=== PATIENT | female | born 1965 | race African-American/Black ===

== ENCOUNTER 2017-07-17 16:06 | Outpatient (CLI) | payer BC ==
[2017-07-17 18:46] LABS: BASOPHILS % (AUTO) 0.4 % (0.0-2.0); EOSINOPHILS # (AUTO) 0.1 K/uL (0.0-0.4); EOSINOPHILS % (AUTO) 1.5 % (0.0-4.0); HEMATOCRIT 39.1 % (36-48); HEMOGLOBIN 12.8 g/dL (12.0-16.0); LYMPHOCYTES # (AUTO) 2.7 K/uL (1.0-5.5); LYMPHOCYTES % (AUTO) 40.2 % (20.5-51.5); MEAN CORPUSCULAR HEMOGLOBIN 30 pg (27-31); MEAN CORPUSCULAR HGB CONC 33 % (32-36); MEAN CORPUSCULAR VOLUME 91 fL (79.0-98.0); MONOCYTES # (AUTO) 0.6 K/uL (0.0-1.0); MONOCYTES % (AUTO) 9.2 % (1.7-9.3); NEUTROPHILS # (AUTO) 3.3 K/uL (1.8-7.7); NEUTROPHILS % (AUTO) 48.7 % (40.0-70.0); PLATELET COUNT (AUTO) 302 K/uL (130-430); RED BLOOD CELL COUNT(AUTO) 4.32 MIL/uL (4.2-6.2); RED CELL DISTRIBUTION WIDTH 12.1 % (9.0-15.0); WHITE BLOOD COUNT (AUTO) 6.8 K/uL (4.8-10.8)
[2017-07-17 19:04] LABS: ALBUMIN 3.9 g/dL (3.4-4.8); CALCIUM 9.1 mg/dL (8.4-11.0); CREATININE 0.7 mg/dL (0.55-1.30); TOTAL BILIRUBIN 0.6 mg/dL (0.0-1.0)
[2017-07-19 17:12] LABS: ANTI NUCLEAR AB WITH REFLEX Positive (Negative)
[2017-07-20 10:21] LABS: PTT-LA 43.6 sec (0.0-51.9); dRVVT 35.6 sec (0.0-47.0)
== END 2017-07-17 20:32 | disposition home or self-care (01) ==
LOC: SUS 16:06
PROVIDERS: ATTEND Specialist
DX: N64.4 Mastodynia (principal); J01.10 Acute frontal sinusitis, unspecified
CPT/HCPCS: 76641; 80053; 85025; 85613; 85670; 85705; 85732; 86038; 86431; G0204; 36415